=== PATIENT | male | born 1950 | race Hispanic/Latino ===

== ENCOUNTER 2017-03-10 08:34 | Inpatient (IN) | payer MEDICARE, OTHER ==
[2017-03-10 08:34] VITALS: BMI 37.3
[2017-03-10] MEDS ORDERED: Sodium Chloride 0.9% 1,000 ML IV STA ×3 (09:07→10:17)
--- NOTE | 2017-03-10 09:15 | ED PDOC ---
Lower Extremity Pain/Injury Time Seen by Provider: 03/10/17 08:57 Chief Complaint (Nursing): Lower Extremity Problem/Injury History Per: Patient Onset/Duration Of Symptoms: Unknown Current Symptoms Are (Timing): Still Present Severity: Moderate Additional Complaint(s): Pain and drauinage left leg, chronic, [id number] h/o osteomyelitis same leg post surgery. C/o fever and chills. Past Medical History Vital Signs: Last Vital Signs Temp 100.2 F H 03/10/17 09:01 Pulse 142 H 03/10/17 08:48 Resp 20 03/10/17 08:48 BP 95/68 L 03/10/17 08:48 Pulse Ox 90 L 03/10/17 08:48 - Surgical History Other surgeries: Surgery left leg - Family History Family History: States: Unknown Family Hx - Home Medications Home Medications: Ambulatory Orders Medication Instructions Recorded oxyCODONE [oxyCODONE Immediate 30 mg PO TID 03/10/17 Release Tab] - Allergies Allergies/Adverse Reactions: Allergies Allergy/AdvReac Type Severity Reaction Status Date / Time No Known Allergies Allergy Verified 12/05/16 15:01 Review of Systems ROS Statement: Except As Marked, All Systems Reviewed And Found Negative Constitutional: Positive for: Fever, Chills Cardiovascular: Negative for: Chest Pain, Palpitations Musculoskeletal: Positive for: Leg Pain Physical Exam - Reviewed Nursing Documentation Reviewed: Yes Vital Signs Reviewed: Yes - Physical Exam Appears: Positive for: Non-toxic, No Acute Distress Head Exam: Positive for: ATRAUMATIC, NORMAL INSPECTION, NORMOCEPHALIC Skin: Positive for: Normal Color, Warm, DRY Eye Exam: Positive for: EOMI, Normal appearance, PERRL ENT: Positive for: Normal ENT Inspection Neck: Positive for: Normal, Painless ROM Cardiovascular/Chest: Positive for: Tachycardia, Irregularly Irregular Respiratory: Positive for: Decreased Breath Sounds. Negative for: Wheezing, Respiratory Distress Gastrointestinal/Abdominal: Positive for: Normal Exam, Bowel Sounds, Soft Back: Positive for: Normal Inspection Extremity: Positive for: Other (Serosanguinous drainage left distal thigh from surgical wound. +ve tenderness distal thight. No calf tenderness.) Neurologic/Psych: Positive for: Alert, Oriented - Laboratory Results Result Diagrams: 03/10/17 09:15 03/10/17 09:15 - ECG O2 Sat by Pulse Oximetry: 90 - Critical Care Total Time (In Min): 45 Documented Critical Care: Time excludes all time spent performint seperately billable procedures Medical Decision Making Medical Decision Making: Pt has hi cath, will access and use for central line resuscitation Bolus NS 30ml/kg BP 110/70 after initial bolus Vanco 1 gm and Zosyn 3.375 for presumptive osteomyelitis as source of sepsis EKG tachycardic rhythm suspect sinus tach but read as afib with RVR. No PMH afib Disposition - Clinical Impression Clinical Impression: Severe sepsis, Osteomyelitis, Acute renal failure - Patient ED Disposition Is Patient to be Admitted: Yes - Disposition Disposition Time: 10:48 Condition: FAIR - Pt Status Changed To: Hospital Disposition Of: Inpatient - Admit Certification Admit to Inpatient:: After my assessment, the patient will require hospitalization for at least two midnights. This is because of the severity of symptoms shown, intensity of services needed, and/or the medical risk in this patient being treated as an outpatient. - POA Present On Arrival: None
[2017-03-10] MEDS ORDERED: Vancomycin 1 g Inj ONE (09:29)
[2017-03-10 09:32] LABS: HEMOGLOBIN 15.9 g/dL (12.0-18.0); MEAN CELL VOLUME 88.4 fl (80.0-94.0); MEAN CORPUSCULAR HEMOGLOBIN 29.7 pg (27.0-31.0); MEAN CORPUSCULAR HGB CONC 33.6 g/dL (33.0-37.0); MEAN PLATELET VOLUME 8.5 fl (7.2-11.7); PLATELET COUNT 179 K/uL (130-400); RBC 5.36 Mil/uL (4.40-5.90); RED CELL DISTRIBUTION WIDTH 14.7 % (11.5-14.5); WHITE BLOOD COUNT 11.3 K/uL (4.8-10.8)
[2017-03-10 09:42] LABS: ALB/GLOB RATIO 0.8 (1.0-2.1); ALBUMIN 2.8 g/dL (3.5-5.0); CALCIUM 8.4 mg/dL (8.4-10.2)
[2017-03-10 09:50] LABS: VENOUS BLOOD GAS BASE EXCESS -9.4 mmol/L (0.0-2.0); VENOUS BLOOD GAS PCO2 46 mmHg (40-60); VENOUS BLOOD GAS PO2 22 mm/Hg (30-55); VENOUS BLOOD PH 7.21 (7.32-7.43)
[2017-03-10] MEDS ORDERED: Morphine 4 MG/ML VIAL ONE (10:31)
[2017-03-10] MEDS ORDERED: Potassium Chloride 20 mEq ER Tab PO ONE (10:31)
[2017-03-10] MEDS: Potassium Chloride 20 mEq ER Tab PO ONE ×2 (10:33→11:40)
[2017-03-10 10:39] LABS: INR 1.3 (0.9-1.2); PARTIAL THROMBOPLASTIN TIME 42.8 Seconds (25.6-37.1); PROTHROMBIN TIME 14.6 Seconds (9.8-13.1)
[2017-03-10 10:46] LABS: MAGNESIUM 1.9 MG/DL (1.6-2.3)
[2017-03-10 10:55] VITALS: O2SAT 94
--- NOTE | 2017-03-10 11:01 | RAD ---
PROCEDURE: CHEST RADIOGRAPH, 1 VIEW HISTORY: sepsis COMPARISON: Chest radiograph dated 03/09/2013 FINDINGS: LUNGS: Clear. PLEURA: No pneumothorax or pleural fluid seen. CARDIOVASCULAR: Cardiomediastinal silhouette stably prominent. OSSEOUS STRUCTURES: Unchanged. VISUALIZED UPPER ABDOMEN: Normal. OTHER FINDINGS: Right internal jugular access chest port. IMPRESSION: No active disease.
--- NOTE | 2017-03-10 11:04 | RAD ---
PROCEDURE: Left Femur Radiographs. HISTORY: r/o osteomyelitis COMPARISON: None. TECHNIQUE: AP and Lateral Radiographs of the left femur. FINDINGS: Left orthopedic hardware demonstrated. Diffuse heterogeneity and hypertrophy/ proliferative changes the femur and tibia are grossly unchanged. There is no subcutaneous gas or evidence of periprosthetic fracture or loosening. No periosteal reaction is evident. IMPRESSION: No significant interval change. No radiographic evidence of acute process.
--- NOTE | 2017-03-10 11:09 | CP.PCM.HP ---
History of Present Illness - History of Present Illness History of Present Illness: CC: I felt bad HPI: 66 year old male with chronic leg pain seeing Dr. Maylin Armendariz, s/p "leg surgery" unspecified, likely knee replacement, presents with a several day history of fatigue, malaise, "feeling like he had the flu." Patient is uncooperative with history and examination, stating he wished to speak tomorrow because he was feeling tired. In ER, pt was reported to be hypotensive systolic BP in 70s and tachycardic in 140s with temp 100.2, WBC 11K with bands 30, LA 8.9.. Patient responded well to fluid bolus through port (for which he had placed presumably for IV abx for infection in the same area [discussed with Dr. Mata who pt was only referred to for a wound culture L knee to be taken]) and was hemodynamically stabilized. Patient to be admitted to ICU for further management and care for sepsis 2/2 osteomyelitis vs. infected port. Discussed with ID Dr. Lee, to consult Dr. Deon Cote for possible debridement as well as General Surgery Dr. Chadd Galloway for removal of portacath. Upon discussion with (former?) spouse, patient had been feeling ill for about a week and had very poor PO intake and was generally in bed. Patient sees Dr. Maylin Armendariz who is pain management, however based on conversation, seems she has also been his primary care physician. Attempted to call Dr. Armendariz, however no [employer] physician was able to be reached. ROS: refused to answer PMH: chronic pain PSH: denies FH: denies SH: denies tobacco, ETOH, IVDU NKDA Vitals Reviewed refused physical exam GEN: obese, uncooperative, disheveled Extremities: bilateral edema, and per chart draining fluid from distal L thigh LABS Most Recent Lab Values WBC 11.3 K/uL (4.8-10.8) H 03/10/17 09:15 RBC 5.36 Mil/uL (4.40-5.90) 03/10/17 09:15 Hgb 15.9 g/dL (12.0-18.0) 03/10/17 09:15 Hct 47.3 % (35.0-51.0) 03/10/17 09:15 MCV 88.4 fl (80.0-94.0) 03/10/17 09:15 MCH 29.7 pg (27.0-31.0) 03/10/17 09:15 MCHC 33.6 g/dL (33.0-37.0) 03/10/17 09:15 RDW 14.7 % (11.5-14.5) H 03/10/17 09:15 Plt Count 179 K/uL (130-400) 03/10/17 09:15 MPV 8.5 fl (7.2-11.7) 03/10/17 09:15 Neutrophils % (Manual) 63 % (42-75) 03/10/17 09:15 Band Neutrophils % 30 % (0-2) H* 03/10/17 09:15 Lymphocytes % (Manual) 3 % (20-50) L 03/10/17 09:15 Monocytes % (Manual) 1 % (0-10) 03/10/17 09:15 Metamyelocytes % 2 % (0-0) H 03/10/17 09:15 Myelocytes % 1 % (0-0) H 03/10/17 09:15 Toxic Granulation 03/10/17 09:15 Platelet Estimate Normal (NORMAL) 03/10/17 09:15 Large Platelets Present 03/10/17 09:15 Poikilocytosis (manual Moderate 03/10/17 09:15 Basophilic Stippling Critical Care Physician 03/10/17 09:15 Anisocytosis (manual) Slight 03/10/17 09:15 Ovalocytes Slight 03/10/17 09:15 [place] Cells Moderate 03/10/17 09:15 PT 14.6 Seconds (9.8-13.1) H 03/10/17 10:21 INR 1.3 (0.9-1.2) H 03/10/17 10:21 APTT 42.8 Seconds (25.6-37.1) H 03/10/17 10:21 pO2 22 mm/Hg (30-55) L 03/10/17 09:43 VBG pH 7.21 (7.32-7.43) L 03/10/17 09:43 VBG pCO2 46 mmHg (40-60) 03/10/17 09:43 VBG HCO3 15.6 mmol/L 03/10/17 09:43 VBG Total CO2 19.8 mmol/L (22-28) L 03/10/17 09:43 VBG O2 Sat (Calc) 40.2 % (40-65) 03/10/17 09:43 VBG Base Excess -9.4 mmol/L (0.0-2.0) L 03/10/17 09:43 VBG Potassium 4.3 mmol/L (3.6-5.2) 03/10/17 09:43 Sodium 131.0 mmol/L (132-148) L 03/10/17 09:43 Chloride 92.0 mmol/L (98-107) L 03/10/17 09:43 Glucose 104 mg/dL (75-110) 03/10/17 09:43 Lactate 8.9 mmol/L (0.7-2.1) H* 03/10/17 09:43 FiO2 21.0 % 03/10/17 09:43 Blood Gas Comments Lactate 8.9 03/10/17 09:43 Crit Value Called To grey Yanez 03/10/17 09:43 Crit Value Called By Cedric 03/10/17 09:43 Crit Value Read Back Y 03/10/17 09:43 Blood Gas Notified Time 949 03/10/17 09:43 Sodium 135 mmol/l (132-148) 03/10/17 09:15 Potassium 3.4 MMOL/L (3.6-5.0) L 03/10/17 09:15 Chloride 94 mmol/L (98-107) L 03/10/17 09:15 Carbon Dioxide 18 mmol/L (22-30) L 03/10/17 09:15 Anion Gap 26 (10-20) H 03/10/17 09:15 BUN 61 mg/dl (9-20) H 03/10/17 09:15 Creatinine 4.2 mg/dl (0.8-1.5) H 03/10/17 09:15 Est GFR ( Amer) 17 03/10/17 09:15 Est GFR (Non-Af Amer) 14 03/10/17 09:15 POC Glucose (mg/dL) 72 mg/dL (65-110) 03/10/17 14:56 Random Glucose 103 mg/dL (75-110) 03/10/17 09:15 Lactic Acid 7.6 MMOL/L (0.7-2.1) H* 03/10/17 11:55 Calcium 8.4 mg/dL (8.4-10.2) 03/10/17 09:15 Phosphorus 4.7 mg/dl (2.5-4.5) H 03/10/17 10:21 Magnesium 1.9 MG/DL (1.6-2.3) 03/10/17 10:21 Total Bilirubin 2.2 mg/dl (0.2-1.3) H 03/10/17 09:15 AST 81 U/L (17-59) H 03/10/17 09:15 ALT 62 U/L (21-72) 03/10/17 09:15 Alkaline Phosphatase 104 U/L (38-126) 03/10/17 09:15 Total Protein 6.3 G/DL (6.3-8.2) 03/10/17 09:15 Albumin 2.8 g/dL (3.5-5.0) L 03/10/17 09:15 Globulin 3.5 gm/dL (2.2-3.9) 03/10/17 09:15 Albumin/Globulin Ratio 0.8 (1.0-2.1) L 03/10/17 09:15 Venous Blood Potassium 4.3 mmol/L (3.6-5.2) 03/10/17 09:43 Allergies No Known Allergies Allergy (Verified 12/05/16 15:01) Height & Weight Height 5 ft 10 in Weight 265 lb Start Date/Time Active Medications 03/10/17 11:45 Piperacillin/Tazobact [Zosyn] 2.25 gm Sodium Chloride 0.9% 50 ml IVPB Q8 Clinical Indication: Empiric Therapy Piperacillin-Tazobactam Indication: Skin & Soft Tissue Infx 03/10/17 12:43 oxyCODONE [oxyCODONE Immediate Release Tab] 10 mg PO Q6 PRN 03/10/17 14:45 Dextrose 5% In Water [Dextrose 5% In Water 1000 ml] 1,000 ml Sodium Bicarbonate 8.4% [Sodium Bicarbonate (8.4%) 50 Meq Syringe] 150 meq IV 75 mls/ hr 03/10/17 15:00 Dextrose 5% In Water 250 ml Norepinephrine [Levophed] 4 mg IV 2.5 mcg/min 03/10/17 15:45 Sodium Chloride 0.9% 96 ml Dexmedetomidine Hydrochloride [Precedex] 400 mcg IV 0.2 mcg/kg/hr 03/10/17 17:00 Docusate [Colace] 100 mg PO BID 03/10/17 21:00 Pantoprazole [Protonix Inj] 40 mg IVP Q12 03/12/17 09:00 Vancomycin [Vancomycin Inj] 1 gm Sodium Chloride 0.9% 250 ml IVPB DAILY Clinical Indication: Empiric Therapy Vancomycin Indication: Skin and Structure Inf ASSESSMENT AND PLAN 66 year old male with chronic leg pain seeing Dr. Maylin Armendariz, s/p "leg surgery " unspecified, likely knee replacement, presents with a several day history of fatigue, malaise, "feeling like he had the flu." Patient is uncooperative with history and examination, stating he wished to speak tomorrow because he was feeling tired. In ER, pt was reported to be hypotensive systolic BP in 70s and tachycardic in 140s with temp 100.2, WBC 11K with bands 30, LA 8.9. Patient responded well to fluid bolus through port (for which he had placed presumably for IV abx for infection in the same area [discussed with Dr. Mata who pt was only referred to for a wound culture L knee to be taken]) and was hemodynamically stabilized. Patient to be admitted to ICU for further management and care for sepsis 2/2 osteomyelitis vs. infected port. Discussed with ID Dr. Lee, to consult Dr. Deon Cote for possible debridement as well as General Surgery Dr. Chadd Galloway for removal of portacath. Pt was stabilized in ER and transferred, admit to ICU. Upon discussion with (former?) spouse, patient had been feeling ill for about a week and had very poor PO intake and was generally in bed. Patient sees Dr. Maylin Armendariz who is pain management, however based on conversation, seems she has also been his primary care physician. Attempted to call Dr. Armendariz, however no [employer] physician was able to be reached. In ICU, patient became acutely unresponsive, hypotensive, tachycardic, hypoxic, tachypneic and then apneic, was intubated, levophed initiated, ordered STAT CT head and chest. Family notified. CAYLA mathew called for PEA, ACLS protocol initiated, ROSC, central line R femoral, Kizzy L arm. Discussed with Son, Laci who is next of kin, patient is not . Family wishes to have patient as FULL CODE and "to do everything to keep him alive." Labs pending, patient in severe acidosis, BE repeat -25 and LA 9.1, evaluate for acute CVA vs acute FL vs acute PE. On exam, patient lower extremities mottled, pupils fixed. Closely monitor in ICU, will discuss with family again once further diagnostic testing results Severe Sepsis Severe Metabolic Acidosis, Lactic Acidosis 2/2 Osteomyelitis vs. infected portacath? pt presented with hypotension, tachycardia, bands 30, temp 100.2 Vanc and Zosyn renally dosed (Vanc QOD) intiated 03/10/17 general surgery consulted for removal portacath orthopedic surgery consulted for possible debridement/eval for osteo infectious disease, discussed, consult appreciated and followed cultures pending BE -9.4, repeat -25 LA trending up pt initiated on bicarb drip , levophed monitor Rhabdomyolysis CK 1539, on fluids Coffee-ground Emesis one episode in ER H/H stable on Protonix IVP Q12 THELMA No hx of renal failure in past per family/ BUN 61 SCr 4.2 Chronic Pain patient home dose Oxy 30 mg TID. Present on Admission - Present on Admission Any Indicators Present on Admission: No Past Patient History - Past Social History Smoking Status: Never Smoked - MUSCULOSKELETAL/RHEUMATOLOGICAL Hx Musculoskeletal Disorders: Yes Hx Osteomyelitis: Yes - PSYCHIATRIC Hx Substance Use: No - SURGICAL HISTORY Hx Surgeries: Yes Other/Comment: surgery to left leg Meds Allergies/Adverse Reactions: Allergies Allergy/AdvReac Type Severity Reaction Status Date / Time No Known Allergies Allergy Verified 12/05/16 15:01 Results - Vital Signs Recent Vital Signs: Last Vital Signs Temp 100.2 F H 03/10/17 09:01 Pulse 135 H 03/10/17 10:54 Resp 20 03/10/17 10:54 BP 115/77 03/10/17 10:54 Pulse Ox 94 L 03/10/17 10:54 - Labs Result Diagrams: 03/10/17 09:15 03/10/17 09:15 Labs: Laboratory Results - last 24 hr 03/10/17 03/10/17 03/10/17 09:15 09:15 09:43 WBC 11.3 H RBC 5.36 Hgb 15.9 Hct 47.3 MCV 88.4 MCH 29.7 MCHC 33.6 RDW 14.7 H Plt Count 179 MPV 8.5 PT INR APTT pO2 22 L VBG pH 7.21 L VBG pCO2 46 VBG HCO3 15.6 VBG Total CO2 19.8 L VBG O2 Sat (Calc) 40.2 VBG Base Excess -9.4 L VBG Potassium 4.3 Glucose 104 Lactate 8.9 H* FiO2 21.0 Blood Gas Comments Lactate 8.9 Crit Value Called To grey Yanez Crit Value Called By 203 Crit Value Read Back Y Blood Gas Notified Time 949 Sodium 135 131.0 L Potassium 3.4 L Chloride 94 L 92.0 L Carbon Dioxide 18 L Anion Gap 26 H BUN 61 H Creatinine 4.2 H Est GFR ( Amer) 17 Est GFR (Non-Af Amer) 14 Random Glucose 103 Calcium 8.4 Phosphorus Magnesium Total Bilirubin 2.2 H AST 81 H ALT 62 Alkaline Phosphatase 104 Total Protein 6.3 Albumin 2.8 L Globulin 3.5 Albumin/Globulin Ratio 0.8 L Venous Blood Potassium 4.3 18 03/10/17 10:21 10:21 WBC RBC Hgb Hct MCV MCH MCHC RDW Plt Count MPV PT 14.6 H INR 1.3 H APTT 42.8 H pO2 VBG pH VBG pCO2 VBG HCO3 VBG Total CO2 VBG O2 Sat (Calc) VBG Base Excess VBG Potassium Glucose Lactate FiO2 Blood Gas Comments Crit Value Called To Crit Value Called By Crit Value Read Back Blood Gas Notified Time Sodium Potassium Chloride Carbon Dioxide Anion Gap BUN Creatinine Est GFR ( Amer) Est GFR (Non-Af Amer) Random Glucose Calcium Phosphorus 4.7 H Magnesium 1.9 Total Bilirubin AST ALT Alkaline Phosphatase Total Protein Albumin Globulin Albumin/Globulin Ratio Venous Blood Potassium
[2017-03-10 11:22] LABS: ANISOCYTOSIS SLIGHT; BANDS 30 % (0-2); LYMPHOCYTE 3 % (20-50); METAMYELOCYTE 2 % (0-0); MONOCYTE 1 % (0-10); MYELOCYTE 1 % (0-0); NEUTROPHIL 63 % (42-75); PLATELET ESTIMATE NORMAL (NORMAL); TOTAL CELLS COUNTED 100
[2017-03-10 11:23] LABS: BURR CELLS MODERATE; POIKILOCYTOSIS MODERATE
[2017-03-10 11:25] LABS: LARGE PLATELETS PRESENT; OVALOCYTES SLIGHT
--- NOTE | 2017-03-10 11:31 | CP.PCM.CON ---
History of Present Illness - History of Present Illness History of Present Illness: 66 y/o male with pmx of multiple left knee surgery presents to [facility] with c/o left knee pain. Patient notes he goes to a "pain" doctor on [address], but does not remember name of doctor. Patient's son also at bedside could not provide any history. 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 Patient was also had right port (sub Q) placement for IV antibiotics but patient does not remember the name of the antibiotics. Patient did not follow up with previous infectious disease physician and did not follow up with an orthopedic physician. Patient has been going to a a pain clinic 3x/week. Patient or son could not provide any history of any recent medical problems. Patient denies having kidney failure. Patient has left knee sinus tract which is draining purulent fluid. Patient's main complaint was pain in left knee and dx with left knee sinus track with likely prosthetic joint infection not on any supressive abx. Limited history from patient. deneis any chest pain, denies any abdominal pain, deneis any SOB, (+)left knee pain Review of Systems - Review of Systems Systems not reviewed;Unavailable: Unstable Vital Signs - Constitutional Constitutional: Fatigue, Malaise - Cardiovascular Cardiovascular: Edema, Leg Edema. absent: Chest Pain, Syncope - Respiratory Respiratory: absent: Cough, Dyspnea, Wheezing - Gastrointestinal Gastrointestinal: absent: Abdominal Pain, Diarrhea, Fecal Incontinence, Loose Stools, Vomiting - Genitourinary Genitourinary: Other (decrease urine output) - Integumentary Integumentary: Other (left knee sinus tract) Past Patient History - Tetanus Immunizations Tetanus Immunization: Unknown - Past Medical History & Family History Past Medical History?: Yes - Past Social History Smoking Status: Smoker Currrent Status Unknown - MUSCULOSKELETAL/RHEUMATOLOGICAL Hx Musculoskeletal Disorders: Yes Hx Osteomyelitis: Yes - PSYCHIATRIC Hx Substance Use: No - SURGICAL HISTORY Hx Surgeries: Yes Other/Comment: surgery to left leg Meds Allergies/Adverse Reactions: Allergies Allergy/AdvReac Type Severity Reaction Status Date / Time No Known Allergies Allergy Verified 12/05/16 15:01 - Medications Medications: Current Medications Sodium Chloride (Sodium Chloride 0.9%) 1,000 mls @ 200 mls/hr IV .Q5H STA Stop: 03/10/17 14:06 Last Admin: 03/10/17 09:21 Dose: 200 mls/hr Piperacillin Sod/Tazobactam (Sod 3.375 gm/ Sodium Chloride) 100 mls @ 100 mls/ hr IVPB Q12 TRISTON PRN Reason: Protocol Physical Exam - Constitutional Appears: Unkempt, Chronically Ill - Respiratory Exam Respiratory Exam: NORMAL BREATHING PATTERN - Cardiovascular Exam Cardiovascular Exam: REGULAR RHYTHM, +S1, +S2, Systolic Murmur - GI/Abdominal Exam GI & Abdominal Exam: Normal Bowel Sounds, Soft - Expanded Lower Extremities Exam Left Lower Leg Exam: ecchymosis, swelling - Skin Skin Exam: Normal Color - Additional Findings Additional findings: 2 sinus tract :left knee sinus track with open purulent secretions drainage, 2nd sinus tract closed not drainage Results - Vital Signs Recent Vital Signs: Last Vital Signs Temp 100.2 F H 03/10/17 09:01 Pulse 135 H 03/10/17 10:54 Resp 20 03/10/17 10:54 BP 115/77 03/10/17 10:54 Pulse Ox 94 L 03/10/17 10:54 - Labs Result Diagrams: 03/10/17 09:15 03/10/17 09:15 Labs: Laboratory Results - last 24 hr 03/10/17 03/10/17 03/10/17 09:15 09:15 09:43 WBC 11.3 H RBC 5.36 Hgb 15.9 Hct 47.3 MCV 88.4 MCH 29.7 MCHC 33.6 RDW 14.7 H Plt Count 179 MPV 8.5 Neutrophils % (Manual) 63 Band Neutrophils % 30 H* Lymphocytes % (Manual) 3 L Monocytes % (Manual) 1 Metamyelocytes % 2 H Myelocytes % 1 H Platelet Estimate Normal Large Platelets Present Poikilocytosis (manual Moderate Basophilic Stippling Slight Anisocytosis (manual) Slight Ovalocytes Slight [place] Cells Moderate PT INR APTT pO2 22 L VBG pH 7.21 L VBG pCO2 46 VBG HCO3 15.6 VBG Total CO2 19.8 L VBG O2 Sat (Calc) 40.2 VBG Base Excess -9.4 L VBG Potassium 4.3 Glucose 104 Lactate 8.9 H* FiO2 21.0 Blood Gas Comments Lactate 8.9 Crit Value Called To grey Yanez Crit Value Called By 203 Crit Value Read Back Y Blood Gas Notified Time 949 Sodium 135 131.0 L Potassium 3.4 L Chloride 94 L 92.0 L Carbon Dioxide 18 L Anion Gap 26 H BUN 61 H Creatinine 4.2 H Est GFR ( Amer) 17 Est GFR (Non-Af Amer) 14 Random Glucose 103 Calcium 8.4 Phosphorus Magnesium Total Bilirubin 2.2 H AST 81 H ALT 62 Alkaline Phosphatase 104 Total Protein 6.3 Albumin 2.8 L Globulin 3.5 Albumin/Globulin Ratio 0.8 L Venous Blood Potassium 4.3 03/10/17 03/10/17 10:21 10:21 WBC RBC Hgb Hct MCV MCH MCHC RDW Plt Count MPV Neutrophils % (Manual) Band Neutrophils % Lymphocytes % (Manual) Monocytes % (Manual) Metamyelocytes % Myelocytes % Platelet Estimate Large Platelets Poikilocytosis (manual Basophilic Stippling Anisocytosis (manual) Ovalocytes [place] Cells PT 14.6 H INR 1.3 H APTT 42.8 H pO2 VBG pH VBG pCO2 VBG HCO3 VBG Total CO2 VBG O2 Sat (Calc) VBG Base Excess VBG Potassium Glucose Lactate FiO2 Blood Gas Comments Crit Value Called To Crit Value Called By Crit Value Read Back Blood Gas Notified Time Sodium Potassium Chloride Carbon Dioxide Anion Gap BUN Creatinine Est GFR ( Amer) Est GFR (Non-Af Amer) Random Glucose Calcium Phosphorus 4.7 H Magnesium 1.9 Total Bilirubin AST ALT Alkaline Phosphatase Total Protein Albumin Globulin Albumin/Globulin Ratio Venous Blood Potassium Assessment & Plan - Assessment and Plan (Free Text) Plan: Left Knee prosthetic joint infection: last culture MSSA/corynebacterium, start broad spectrum abx, ID follow up, continue 30 ml/kg of IVF, serial lactic, source control (orthopedic consult), ID consult -THELMA/CKD: Patient knew about decreased urine output, avoid nephrotoxic drugs, chek UA/urine lytes and urine eosinophils, renal consult -Suspect chronic diastolic heart failure: obtain echo, EKG, cardiology eval for possible surgial intervention -NPO -BGM q6hrs, ISS lispro -dvt ppx heparin SQ -PUD ppx protonix Overall, patient provides a history of failure to follow up with ortho and infectious disease which has resulted in progression of left knee infection resulting in sinus tract formation. Prognosis guarded with mortality high (more than 60 percent) Patient will benefit from ICU level care. cc time 45 minutes Risks, benefits and alternatives to above management discussed with patient as his son. All questions answered. Addendum: Patient's son brought in medications from home, which included clindamycin 1500 mg q6hrs, cephelexin QID, HCTZ, gabapentin and pentoxyphylene Physician prescribing medicaitons include Willa Gutierrez and Josue Lynn PMD: Pati Sesay Patient's son provided multiple phone numbers: [phone] J[place]aran[place]rlton (daughter in law) [phone] Laci (son) [phone] ([place]) Son stated that patient has most of his follow up at [facility] (admitted at least 6-10 times in last few years). - Date & Time Date: 03/10/17 Time: 15:02
[2017-03-10] MEDS ORDERED: oxyCODONE 10 mg Immediate Release Tab PO PRN (12:43)
[2017-03-10] MEDS: Piperacillin/Tazobact 2.25 GM in Sodium Chloride 0.9% 50 ML IVPB SCH ×2 (13:40→16:06)
[2017-03-10] MEDS ORDERED: Influenza Vaccine 18yr & older 0.5 ML/45 MCG SYR IM ONE (14:00)
[2017-03-10] MEDS ORDERED: Dextrose 50% SYRINGE Inj (50 ml) IVP STA (14:10)
[2017-03-10] MEDS ORDERED: Dextrose 50% SYRINGE Inj (50 ml) ONE (14:11)
[2017-03-10] MEDS ORDERED: Sodium Bicarbonate 8.4% 150 MEQ in Dextrose 5% In Water 1,000 ML IV SCH (14:45)
[2017-03-10] MEDS ORDERED: Dextrose 50% SYRINGE Inj (50 ml) IVP ONE (14:56)
[2017-03-10] MEDS ORDERED: Pneumococcal 23-Valent Vaccine IM ONE (15:00)
[2017-03-10] MEDS ORDERED: Dexmedetomidine Hydrochloride 400 MCG in Sodium Chloride 0.9% 96 ML IV SCH (15:45)
[2017-03-10] MEDS ORDERED: Propofol 10 mg/ml 1,000 MG/100 ML VIAL ONE (16:24)
[2017-03-10 16:37] LABS: ABG ALLEN TEST YES; ARTERIAL BLOOD GAS HCO3 4.8 mmol/L (21-28); ARTERIAL BLOOD GAS HEMOGLOBIN 15.9 g/dL (11.7-17.4); ARTERIAL BLOOD GAS O2 CAPACITY 21.9 mL/dL (16-24); ARTERIAL BLOOD GAS O2 SAT 100.5 % (95-98); ARTERIAL BLOOD GAS PCO2 40 mm/Hg (35-45); ARTERIAL BLOOD GAS PH 6.88 (7.35-7.45); ARTERIAL BLOOD GAS PO2 159 mm/Hg (80-100); ARTERIAL BLOOD GAS TCO2 8.7 mmol/L (22-28)
[2017-03-10 16:41] VITALS: TEMP 98.5
--- NOTE | 2017-03-10 16:44 | CP.PCM.PN ---
Subjective - Date & Time of Evaluation Date of Evaluation: 03/10/17 Time of Evaluation: 04:20 - Subjective Subjective: Nurse noted patient not responsive. Patient seen at bedside. Not spontaneous breathing. Objective - Vital Signs/Intake and Output Vital Signs (last 24 hours): Temp Pulse Resp BP Pulse Ox 98.5 F 119 H 27 H 79/42 L 94 L 03/10/17 16:00 03/10/17 16:00 03/10/17 16:00 03/10/17 16:00 03/10/17 14:00 Intake and Output: 03/10/17 03/10/17 06:59 18:59 Intake Total 3129 Balance 3129 - Medications Medications: Current Medications Docusate Sodium (Colace) 100 mg PO BID [facility] Last Admin: 03/10/17 16:04 Dose: Not Given Piperacillin Sod/Tazobactam (Sod 2.25 gm/ Sodium Chloride) 50 mls @ 50 mls/hr IVPB Q8 [facility] PRN Reason: Protocol Last Admin: 03/10/17 16:06 Dose: 50 mls/hr Sodium Bicarbonate 150 meq/ (Dextrose) 1,150 mls @ 75 mls/hr IV .[id number] [facility] Stop: 03/11/17 14:31 Norepinephrine Bitartrate 4 mg (/ Dextrose) 254 mls @ 9.52 mls/hr IV .Q24H TRISTON ; 2.5 MCG/MIN PRN Reason: Protocol Last Titration: 03/10/17 15:57 Dose: 5 mcg/min, 19.05 mls/hr Vancomycin HCl 1 gm/ Sodium (Chloride) 250 mls @ 166.667 mls/hr IVPB DAILY [facility] PRN Reason: Protocol Dexmedetomidine HCl 400 mcg/ (Sodium Chloride) 100 mls @ 6.01 mls/hr IV .[id number] [facility]; 0.2 MCG/KG/HR PRN Reason: Protocol Oxycodone HCl (Oxycodone Immediate Release Tab) 10 mg PO Q6 PRN PRN Reason: Pain, severe (8-10) Last Admin: 03/10/17 12:49 Dose: 10 mg Pantoprazole Sodium (Protonix Inj) 40 mg IVP Q12 TRISTON Sodium Bicarbonate (Sodium Bicarbonate 7.5% (0.9 Meq/Ml) 50 Ml) 135 meq IV ONCE ONE Stop: 03/10/17 16:46 - Labs Labs: 03/10/17 09:15 03/10/17 09:15 PT 14.6 Seconds (9.8-13.1) H 03/10/17 10:21 INR 1.3 (0.9-1.2) H 03/10/17 10:21 APTT 42.8 Seconds (25.6-37.1) H 03/10/17 10:21 - Eye Exam Pupil Exam: Fixed Additional comments: pupils not reactive - Respiratory Exam Additional comments: no spontaneous breathing - Skin Skin Exam: Mottled Assessment and Plan - Assessment and Plan (Free Text) Plan: Acute respiratory arrest: patient immediately intubated, (+)EtCO2, (+)b/l air entry, pulses present -ABg performed post intubation: revealed significant Acidosis with bicarb of 4 and pH 6.88 and pCO2 of 40 -metabolic acidosis with inadequate ventilatory response -metabolic and respiratory acidosis -contineu IV bicarb ggt and bicarb push -base excess high -CT head r/o stroke Procedures Attestation:: I certify that I have explained the specified Operation(s) or Procedure(s), risks, benefits and reasonable alternatives to the Patient and/or other person responsible. The opportunity was given to ask questions and all questions answered - Intubation Sedative: None Laryngoscope: Lambert ET Tube Size: 7.5 ET Tube Uncuffed: Yes ET Tube Secured at Depth: 22 ET Tube Secured Locarion: Teeth ET Tube Placement Confirmation: Visualized Passing Through Cords, Breath Sounds Equal Bilaterally, No Breath Sounds Over Epigastrum, Confirmation w/Capnometry Patient Tolerated Procedure: Well Procedure Immediate Complications: None
[2017-03-10] MEDS ORDERED: Sodium Bicarbonate 7.5% (0.9 MEQ/ML) 50ML INJ IV ONE ×3 (16:45)
[2017-03-10] MEDS ORDERED: Propofol 10 mg/ml 1,000 MG/100 ML VIAL IV SCH (17:00)
--- NOTE | 2017-03-10 17:02 | RAD ---
PROCEDURE: CHEST RADIOGRAPH, 1 VIEW HISTORY: eval effusion COMPARISON: Chest radiograph performed approximately 6.5 hours prior. FINDINGS: LUNGS: Clear. PLEURA: No pneumothorax or pleural fluid seen. CARDIOVASCULAR: Cardiomediastinal silhouette stably prominent. OSSEOUS STRUCTURES: Unchanged. VISUALIZED UPPER ABDOMEN: Normal. OTHER FINDINGS: New endotracheal tube with tip between the clavicles and ileana. Right internal jugular access chest port, unchanged. . IMPRESSION: Interval placement of endotracheal tube in satisfactory position. No other significant interval change.
[2017-03-10 17:23] LABS: ABG ALLEN TEST YES; ARTERIAL BLOOD GAS HEMOGLOBIN 12.6 g/dL (11.7-17.4); ARTERIAL BLOOD GAS O2 CAPACITY 17.1 mL/dL (16-24); ARTERIAL BLOOD GAS O2 CONTENT 16.7 ML/dL (15-23); ARTERIAL BLOOD GAS O2 SAT 97.4 % (95-98); ARTERIAL BLOOD GAS PCO2 69 mm/Hg (35-45); ARTERIAL BLOOD GAS PH 7.42 (7.35-7.45); ARTERIAL BLOOD GAS PO2 75 mm/Hg (80-100); ARTERIAL BLOOD GAS TCO2 46.9 mmol/L (22-28)
--- NOTE | 2017-03-10 17:53 | CP.PCM.PN ---
Subjective - Date & Time of Evaluation Date of Evaluation: 03/10/17 Time of Evaluation: 17:05 - Subjective Subjective: NUrse called 2nd patient became bradycardic -suspect acidosis -immediate CPR started and bicarb pushed with epi. -3 amps of bicarb pushed -ROSC obtained -right femoral central line placed after code. Patient no multiple pressors. -Son and daughter at bedside aware of and present when code was called. -echo pending, trop, EKg pending post code Objective - Vital Signs/Intake and Output Vital Signs (last 24 hours): Temp Pulse Resp BP Pulse Ox 98.5 F 119 H 27 H 79/42 L 94 L 03/10/17 16:00 03/10/17 16:00 03/10/17 16:00 03/10/17 16:00 03/10/17 14:00 Intake and Output: 03/10/17 03/10/17 06:59 18:59 Intake Total 3129 Balance 3129 - Medications Medications: Current Medications Docusate Sodium (Colace) 100 mg PO BID [facility] Last Admin: 03/10/17 16:04 Dose: Not Given Piperacillin Sod/Tazobactam (Sod 2.25 gm/ Sodium Chloride) 50 mls @ 50 mls/hr IVPB Q8 [facility] PRN Reason: Protocol Last Admin: 03/10/17 16:06 Dose: 50 mls/hr Sodium Bicarbonate 150 meq/ (Dextrose) 1,150 mls @ 75 mls/hr IV .[id number] [facility] Stop: 03/11/17 14:31 Last Admin: 03/10/17 16:49 Dose: 75 mls/hr Norepinephrine Bitartrate 4 mg (/ Dextrose) 254 mls @ 9.52 mls/hr IV .Q24H [facility] ; 2.5 MCG/MIN PRN Reason: Protocol Last Titration: 03/10/17 15:57 Dose: 5 mcg/min, 19.05 mls/hr Vancomycin HCl 1 gm/ Sodium (Chloride) 250 mls @ 166.667 mls/hr IVPB DAILY [facility] PRN Reason: Protocol Propofol (Diprivan) 1,000 mg in 100 mls @ 3.606 mls/hr IV .Q24H [facility]; 5 MCG/KG/ MIN PRN Reason: Protocol Stop: 03/11/17 16:58 Pantoprazole Sodium (Protonix Inj) 40 mg IVP Q12 [facility]ST[facility] - Labs Labs: 03/10/17 09:15 03/10/17 09:15 PT 14.6 Seconds (9.8-13.1) H 03/10/17 10:21 INR 1.3 (0.9-1.2) H 03/10/17 10:21 APTT 42.8 Seconds (25.6-37.1) H 03/10/17 10:21 - Constitutional Appears: Other (not responsive, pupils not reactive) - Cardiovascular Exam Additional comments: no pulse palpated CPr started Assessment and Plan - Assessment and Plan (Free Text) Plan: -PEA arrest 2nd severe metabolic acidosis: CPR performed and ROSC obtained -post ROSC, I reese ABG which rvealed ABG 7.42, bicarb 38, pCO2 69, possible large PE/metabolic acidosis -ROSC obtained -echo not available suspect patient dilan have had cardiac arrest -echo pending, cardiology eval pending, ID and renal consult pending -Prognosis poor. Addendum: During documentation, patient coded again with bradycardia and asystole. -CPR restarted -multiple episodes of epi/bicarb calcium pushed -unable to obtain Sontaneous circulation Procedures Attestation:: I certify that I have explained the specified Operation(s) or Procedure(s), risks, benefits and reasonable alternatives to the Patient and/or other person responsible. The opportunity was given to ask questions and all questions answered - Arterial Line Left Femoral Aseptic technique was employed throughout the procedure: Full body sterile drape , Chloraprep Antiseptic: 2 minute prep for Femoral Time Out Performed: No Pt. placed on Pulse Ox Monitor: Yes Central Line Prep: Chlorhexidine-Alcohol Combination Local Anesthesia Used: Lidocaine 1% Amount of Anesthesia Used (mls): 5 Ultrasound Used for Placement: No Gauge (Size): 20 gauge Technique Used: Guide Wire Technique Secured by: Suture Post procedure dressing: Clear vapor permeable, Chlorhexidine disc (Biopatch) Patient Tolerated Procedure: well Immediate Complications: none - Central Line Placement Right Femoral Triple Lumen Catheter Aseptic technique was employed throughout the procedure: Full sterile barriers ( mask, hair cover, sterile gown, sterile gloves), Full body sterile drape, Chloraprep Antiseptic: 30 second prep for IJ or SC sites CVP Time Out Performed: No Pt. Placed on Pulse Ox Monitor: Yes Central Line Prep: Chlorhexidine-Alcohol Combination Local Anesthesia Used: Lidocaine 1% Amount of Anesthesia Used (mls): 5 Ultrasound Used for Placement: No Central Line Lumen Inserted: triple Central Line Length: 16 cm Post Procedure: Sutured in Place, Good Blood Return, All Ports Aspirated, Flushed, Capped, Sterile Dressing Applied Secured by: Suture Post procedure dressing: Clear vapor permeable, Chlorhexidine disc (Biopatch) Post Procedure X-Ray: No
[2017-03-10 18:01] LABS: EOS # 0.2 K/uL (0.0-0.7); HEMOGLOBIN 11.8 g/dL (12.0-18.0); MEAN PLATELET VOLUME 9.5 fl (7.2-11.7)
[2017-03-10 18:11] LABS: INR 1.9 (0.9-1.2); PROTHROMBIN TIME 20.9 Seconds (9.8-13.1)
[2017-03-10 18:12] LABS: BASO # 0.1 K/uL (0.0-0.2); BASO % 0.4 % (0.0-2.0); EOS % 0.6 % (0.0-4.0); LYMPH # 2.9 K/uL (1.0-4.3); LYMPH % 10.6 % (20.0-40.0); MEAN CELL VOLUME 92.9 fl (80.0-94.0); MEAN CORPUSCULAR HEMOGLOBIN 28.9 pg (27.0-31.0); MEAN CORPUSCULAR HGB CONC 31.1 g/dL (33.0-37.0); MONO # 0.3 K/uL (0.0-0.8); MONO % 1.1 % (0.0-10.0); NEUT # 23.7 K/uL (1.8-7.0); NEUT % 87.3 % (50.0-75.0); NRBC % 0.7 % (0.0-0.0); PARTIAL THROMBOPLASTIN TIME 94.3 Seconds (25.6-37.1); RBC 4.08 Mil/uL (4.40-5.90); RED CELL DISTRIBUTION WIDTH 15.5 % (11.5-14.5); WHITE BLOOD COUNT 27.1 K/uL (4.8-10.8)
[2017-03-10 18:39] LABS: ALB/GLOB RATIO 0.7 (1.0-2.1); ALBUMIN 1.6 g/dL (3.5-5.0); CALCIUM 9.7 mg/dL (8.4-10.2); MAGNESIUM 4.3 MG/DL (1.6-2.3)
[2017-03-10 18:44] LABS: TROPONIN I 0.287 ng/mL (0.00-0.120)
--- NOTE | 2017-03-10 19:16 | CP.PCM.CON ---
Past Patient History - Tetanus Immunizations Tetanus Immunization: Unknown - Past Medical History & Family History Past Medical History?: Yes - Past Social History Smoking Status: Never Smoked - HEMATOLOGICAL/ONCOLOGICAL Hx AIDS: No Hx Human Immunodeficiency Virus (HIV): No - MUSCULOSKELETAL/RHEUMATOLOGICAL Hx Musculoskeletal Disorders: Yes Hx Osteomyelitis: Yes - PSYCHIATRIC Hx Substance Use: No - SURGICAL HISTORY Hx Surgeries: Yes Other/Comment: surgery to left leg Meds Allergies/Adverse Reactions: Allergies Allergy/AdvReac Type Severity Reaction Status Date / Time No Known Allergies Allergy Verified 12/05/16 15:01 - Medications Medications: Current Medications Docusate Sodium (Colace) 100 mg PO BID [facility] Last Admin: 03/10/17 16:04 Dose: Not Given Piperacillin Sod/Tazobactam (Sod 2.25 gm/ Sodium Chloride) 50 mls @ 50 mls/hr IVPB Q8 [facility] PRN Reason: Protocol Last Admin: 03/10/17 16:06 Dose: 50 mls/hr Sodium Bicarbonate 150 meq/ (Dextrose) 1,150 mls @ 75 mls/hr IV .[id number] [facility] Stop: 03/11/17 14:31 Last Admin: 03/10/17 16:49 Dose: 75 mls/hr Norepinephrine Bitartrate 4 mg (/ Dextrose) 254 mls @ 9.52 mls/hr IV .Q24H [facility] ; 2.5 MCG/MIN PRN Reason: Protocol Last Titration: 03/10/17 15:57 Dose: 5 mcg/min, 19.05 mls/hr Vancomycin HCl 1 gm/ Sodium (Chloride) 250 mls @ 166.667 mls/hr IVPB DAILY [facility] PRN Reason: Protocol Propofol (Diprivan) 1,000 mg in 100 mls @ 3.606 mls/hr IV .Q24H [facility]; 5 MCG/KG/ MIN PRN Reason: Protocol Stop: 03/11/17 16:58 Vasopressin 100 units/ Sodium (Chloride) 105 mls @ 1.89 mls/hr IV .Q24H [facility]; 0.03 UNITS/MIN PRN Reason: Protocol Pantoprazole Sodium (Protonix Inj) 40 mg IVP Q12 [facility] Results - Vital Signs Recent Vital Signs: Last Vital Signs Temp 98.5 F 03/10/17 16:00 Pulse 119 H 03/10/17 16:00 Resp 27 H 03/10/17 16:00 BP 79/42 L 03/10/17 16:00 Pulse Ox 94 L 03/10/17 14:00 - Labs Result Diagrams: 03/10/17 17:49 03/10/17 17:49 Labs: Laboratory Results - last 24 hr 03/10/17 03/10/17 03/10/17 09:15 09:15 09:43 WBC 11.3 H RBC 5.36 Hgb 15.9 Hct 47.3 MCV 88.4 MCH 29.7 MCHC 33.6 RDW 14.7 H Plt Count 179 MPV 8.5 Neut % (Auto) Lymph % (Auto) Placer % (Auto) Eos % (Auto) Baso % (Auto) Neut # Lymph # Placer # Eos # Baso # Neutrophils % (Manual) 63 Band Neutrophils % 30 H* Lymphocytes % (Manual) 3 L Monocytes % (Manual) 1 Metamyelocytes % 2 H Myelocytes % 1 H Toxic Granulation Platelet Estimate Normal Large Platelets Present Poikilocytosis (manual Moderate Basophilic Stippling Media Relations Intern Anisocytosis (manual) Slight Ovalocytes Slight Quan Cells Moderate PT INR APTT pCO2 pO2 22 L HCO3 ABG pH ABG Total CO2 ABG O2 Saturation ABG O2 Content ABG Base Excess ABG Hemoglobin ABG Carboxyhemoglobin POC ABG HHb (Measured) ABG Methemoglobin ABG O2 Capacity Marcell Test VBG pH 7.21 L VBG pCO2 46 VBG HCO3 15.6 VBG Total CO2 19.8 L VBG O2 Sat (Calc) 40.2 VBG Base Excess -9.4 L VBG Potassium 4.3 A-a O2 Difference Hgb O2 Saturation Glucose 104 Lactate 8.9 H* Vent Mode FiO2 21.0 Blood Gas Comments Lactate 8.9 Crit Value Called To grey Yanez Crit Value Called By 203 Crit Value Read Back Y Blood Gas Notified Time 949 Sodium 135 131.0 L Potassium 3.4 L Chloride 94 L 92.0 L Carbon Dioxide 18 L Anion Gap 26 H BUN 61 H Creatinine 4.2 H Est GFR ( Amer) 17 Est GFR (Non-Af Amer) 14 POC Glucose (mg/dL) Random Glucose 103 Lactic Acid Calcium 8.4 Phosphorus Magnesium Total Bilirubin 2.2 H AST 81 H ALT 62 Alkaline Phosphatase 104 Total Creatine Kinase Troponin I Total Protein 6.3 Albumin 2.8 L Globulin 3.5 Albumin/Globulin Ratio 0.8 L Venous Blood Potassium 4.3 03/10/17 03/10/17 03/10/17 10:21 10:21 11:55 WBC RBC Hgb Hct MCV MCH MCHC RDW Plt Count MPV Neut % (Auto) Lymph % (Auto) Placer % (Auto) Eos % (Auto) Baso % (Auto) Neut # Lymph # Placer # Eos # Baso # Neutrophils % (Manual) Band Neutrophils % Lymphocytes % (Manual) Monocytes % (Manual) Metamyelocytes % Myelocytes % Toxic Granulation Platelet Estimate Large Platelets Poikilocytosis (manual Basophilic Stippling Anisocytosis (manual) Ovalocytes [place] Cells PT 14.6 H INR 1.3 H APTT 42.8 H pCO2 pO2 HCO3 ABG pH ABG Total CO2 ABG O2 Saturation ABG O2 Content ABG Base Excess ABG Hemoglobin ABG Carboxyhemoglobin POC ABG HHb (Measured) ABG Methemoglobin ABG O2 Capacity Marcell Test VBG pH VBG pCO2 VBG HCO3 VBG Total CO2 VBG O2 Sat (Calc) VBG Base Excess VBG Potassium A-a O2 Difference Hgb O2 Saturation Glucose Lactate Vent Mode FiO2 Blood Gas Comments Crit Value Called To Crit Value Called By Crit Value Read Back Blood Gas Notified Time Sodium Potassium Chloride Carbon Dioxide Anion Gap BUN Creatinine Est GFR ( Amer) Est GFR (Non-Af Amer) POC Glucose (mg/dL) Random Glucose Lactic Acid 7.6 H* Calcium Phosphorus 4.7 H Magnesium 1.9 Total Bilirubin AST ALT Alkaline Phosphatase Total Creatine Kinase Troponin I Total Protein Albumin Globulin Albumin/Globulin Ratio Venous Blood Potassium 03/10/17 03/10/17 03/10/17 14:07 14:56 16:02 WBC RBC Hgb Hct MCV MCH MCHC RDW Plt Count MPV Neut % (Auto) Lymph % (Auto) Placer % (Auto) Eos % (Auto) Baso % (Auto) Neut # Lymph # Placer # Eos # Baso # Neutrophils % (Manual) Band Neutrophils % Lymphocytes % (Manual) Monocytes % (Manual) Metamyelocytes % Myelocytes % Toxic Granulation Platelet Estimate Large Platelets Poikilocytosis (manual Basophilic Stippling Anisocytosis (manual) Ovalocytes [place] Cells PT INR APTT pCO2 pO2 HCO3 ABG pH ABG Total CO2 ABG O2 Saturation ABG O2 Content ABG Base Excess ABG Hemoglobin ABG Carboxyhemoglobin POC ABG HHb (Measured) ABG Methemoglobin ABG O2 Capacity Marcell Test VBG pH VBG pCO2 VBG HCO3 VBG Total CO2 VBG O2 Sat (Calc) VBG Base Excess VBG Potassium A-a O2 Difference Hgb O2 Saturation Glucose Lactate Vent Mode FiO2 Blood Gas Comments Crit Value Called To Crit Value Called By Crit Value Read Back Blood Gas Notified Time Sodium Potassium Chloride Carbon Dioxide Anion Gap BUN Creatinine Est GFR ( Amer) Est GFR (Non-Af Amer) POC Glucose (mg/dL) 57 L 72 Random Glucose Lactic Acid Calcium Phosphorus Magnesium Total Bilirubin AST ALT Alkaline Phosphatase Total Creatine Kinase 1539 H Troponin I Total Protein Albumin Globulin Albumin/Globulin Ratio Venous Blood Potassium 03/10/17 03/10/17 03/10/17 16:02 16:34 17:21 WBC RBC Hgb Hct MCV MCH MCHC RDW Plt Count MPV Neut % (Auto) Lymph % (Auto) Placer % (Auto) Eos % (Auto) Baso % (Auto) Neut # Lymph # Placer # Eos # Baso # Neutrophils % (Manual) Band Neutrophils % Lymphocytes % (Manual) Monocytes % (Manual) Metamyelocytes % Myelocytes % Toxic Granulation Platelet Estimate Large Platelets Poikilocytosis (manual Basophilic Stippling Anisocytosis (manual) Ovalocytes Quan Cells PT INR APTT pCO2 40 69 H pO2 159 H 75 L HCO3 4.8 L* 38.0 H ABG pH 6.88 L* 7.42 ABG Total CO2 8.7 L 46.9 H ABG O2 Saturation 100.5 H 97.4 ABG O2 Content 22.0 16.7 ABG Base Excess -25.8 L 16.9 H ABG Hemoglobin 15.9 12.6 ABG Carboxyhemoglobin 1.9 H 2.1 H POC ABG HHb (Measured) -0.5 L 2.5 ABG Methemoglobin 1.1 1.4 ABG O2 Capacity 21.9 17.1 Marcell Test Yes Yes VBG pH VBG pCO2 VBG HCO3 VBG Total CO2 VBG O2 Sat (Calc) VBG Base Excess VBG Potassium A-a O2 Difference 504.0 552.0 Hgb O2 Saturation 97.4 94.1 L Glucose Lactate Vent Mode Nrm FiO2 100.0 100.0 Blood Gas Comments Crit Value Called To Dr hiram fields Crit Value Called By [id number] Crit Value Read Back Y Y Blood Gas Notified Time [id number] Sodium Potassium Chloride Carbon Dioxide Anion Gap BUN Creatinine Est GFR ( Amer) Est GFR (Non-Af Amer) POC Glucose (mg/dL) Random Glucose Lactic Acid 9.1 H* Calcium Phosphorus Magnesium Total Bilirubin AST ALT Alkaline Phosphatase Total Creatine Kinase Troponin I Total Protein Albumin Globulin Albumin/Globulin Ratio Venous Blood Potassium 03/10/17 03/10/17 03/10/17 17:49 17:49 17:49 WBC 27.1 H D RBC 4.08 L Hgb 11.8 L D Hct 37.9 MCV 92.9 D MCH 28.9 MCHC 31.1 L RDW 15.5 H Plt Count 65 L D MPV 9.5 Neut % (Auto) 87.3 H Lymph % (Auto) 10.6 L [place]acer % (Auto) 1.1 Eos % (Auto) 0.6 Baso % (Auto) 0.4 Neut # 23.7 H Lymph # 2.9 Placer # 0.3 Eos # 0.2 Baso # 0.1 Neutrophils % (Manual) Band Neutrophils % Lymphocytes % (Manual) Monocytes % (Manual) Metamyelocytes % Myelocytes % Toxic Granulation Platelet Estimate Large Platelets Poikilocytosis (manual Basophilic Stippling Anisocytosis (manual) Ovalocytes Quan Cells PT 20.9 H D INR 1.9 H D APTT 94.3 H D pCO2 pO2 HCO3 ABG pH ABG Total CO2 ABG O2 Saturation ABG O2 Content ABG Base Excess ABG Hemoglobin ABG Carboxyhemoglobin POC ABG HHb (Measured) ABG Methemoglobin ABG O2 Capacity Marcell Test VBG pH VBG pCO2 VBG HCO3 VBG Total CO2 VBG O2 Sat (Calc) VBG Base Excess VBG Potassium A-a O2 Difference Hgb O2 Saturation Glucose Lactate Vent Mode FiO2 Blood Gas Comments Crit Value Called To Crit Value Called By Crit Value Read Back Blood Gas Notified Time Sodium 137 Potassium 5.7 H Chloride 92 L Carbon Dioxide 17 L Anion Gap 34 H BUN 58 H Creatinine 4.6 H Est GFR ( Amer) 15 Est GFR (Non-Af Amer) 13 POC Glucose (mg/dL) Random Glucose 241 H Lactic Acid Calcium 9.7 Phosphorus 15.1 H Magnesium 4.3 H Total Bilirubin 1.5 H AST 564 H D ALT 264 H D Alkaline Phosphatase 165 H D Total Creatine Kinase Troponin I 0.2870 H* Total Protein 3.7 L Albumin 1.6 L D Globulin 2.1 L Albumin/Globulin Ratio 0.7 L Venous Blood Potassium
--- NOTE | 2017-03-10 19:20 | CP.PCM.PRO ---
Pronouncement of Note - Clinical Findings Physical Exam: No Response Verbal/Painful Stimuli, Absent Peripheral Pulses{ Carotid & Femoral}, Absent Heart & Breath Sounds, No Pupillary Light Reflex, No Corneal Reflex, Pupils Fixed & Dilated, Absence of Vital Signs - Pronouncement Time Time of Pronouncement of : 18:56 - Notifications Pronouncement Notifications: Family Notified, Atending Notified Cigar Packing Examiner Notified: Yes - Autopsy Autopsy Requested: No - [place] [id number]
--- NOTE | 2017-03-10 19:25 | CP.PCM.DIS ---
Provider - Provider Date of Admission: 03/10/17 10:22 Attending physician: Liliana Lane DO Time Spent in preparation of Discharge (in minutes): 30 Hospital Course - Lab Results Lab Results: Most Recent Lab Values WBC 27.1 K/uL (4.8-10.8) H D 03/10/17 17:49 RBC 4.08 Mil/uL (4.40-5.90) L 03/10/17 17:49 Hgb 11.8 g/dL (12.0-18.0) L D 03/10/17 17:49 Hct 37.9 % (35.0-51.0) 03/10/17 17:49 MCV 92.9 fl (80.0-94.0) D 03/10/17 17:49 MCH 28.9 pg (27.0-31.0) 03/10/17 17:49 MCHC 31.1 g/dL (33.0-37.0) L 03/10/17 17:49 RDW 15.5 % (11.5-14.5) H 03/10/17 17:49 Plt Count 65 K/uL (130-400) L D 03/10/17 17:49 MPV 9.5 fl (7.2-11.7) 03/10/17 17:49 Neut % (Auto) 87.3 % (50.0-75.0) H 03/10/17 17:49 Lymph % (Auto) 10.6 % (20.0-40.0) L 03/10/17 17:49 [place] % (Auto) 1.1 % (0.0-10.0) 03/10/17 17:49 Eos % (Auto) 0.6 % (0.0-4.0) 03/10/17 17:49 Baso % (Auto) 0.4 % (0.0-2.0) 03/10/17 17:49 Neut # 23.7 K/uL (1.8-7.0) H 03/10/17 17:49 Lymph # 2.9 K/uL (1.0-4.3) 03/10/17 17:49 [place] # 0.3 K/uL (0.0-0.8) 03/10/17 17:49 Eos # 0.2 K/uL (0.0-0.7) 03/10/17 17:49 Baso # 0.1 K/uL (0.0-0.2) 03/10/17 17:49 Neutrophils % (Manual) 63 % (42-75) 03/10/17 09:15 Band Neutrophils % 30 % (0-2) H* 03/10/17 09:15 Lymphocytes % (Manual) 3 % (20-50) L 03/10/17 09:15 Monocytes % (Manual) 1 % (0-10) 03/10/17 09:15 Metamyelocytes % 2 % (0-0) H 03/10/17 09:15 Myelocytes % 1 % (0-0) H 03/10/17 09:15 Toxic Granulation 03/10/17 09:15 Platelet Estimate Normal (NORMAL) 03/10/17 09:15 Large Platelets Present 03/10/17 09:15 Poikilocytosis (manual Moderate 03/10/17 09:15 Basophilic Stippling [employer] 03/10/17 09:15 Anisocytosis (manual) Slight 03/10/17 09:15 Ovalocytes Slight 03/10/17 09:15 Quan Cells Moderate 03/10/17 09:15 PT 20.9 Seconds (9.8-13.1) H D 03/10/17 17:49 INR 1.9 (0.9-1.2) H D 03/10/17 17:49 APTT 94.3 Seconds (25.6-37.1) H D 03/10/17 17:49 pCO2 69 mm/Hg (35-45) H 03/10/17 17:21 pO2 75 mm/Hg (80-100) L 03/10/17 17:21 HCO3 38.0 mmol/L (21-28) H 03/10/17 17:21 ABG pH 7.42 (7.35-7.45) 03/10/17 17:21 ABG Total CO2 46.9 mmol/L (22-28) H 03/10/17 17:21 ABG O2 Saturation 97.4 % (95-98) 03/10/17 17:21 ABG O2 Content 16.7 ML/dL (15-23) 03/10/17 17:21 ABG Base Excess 16.9 mmol/L (-2.0-3.0) H 03/10/17 17:21 ABG Hemoglobin 12.6 g/dL (11.7-17.4) 03/10/17 17:21 ABG Carboxyhemoglobin 2.1 % (0.5-1.5) H 03/10/17 17:21 POC ABG HHb (Measured) 2.5 % (0.0-5.0) 03/10/17 17:21 ABG Methemoglobin 1.4 % (0.0-3.0) 03/10/17 17:21 ABG O2 Capacity 17.1 mL/dL (16-24) 03/10/17 17:21 Marcell Test Yes 03/10/17 17:21 VBG pH 7.21 (7.32-7.43) L 03/10/17 09:43 VBG pCO2 46 mmHg (40-60) 03/10/17 09:43 VBG HCO3 15.6 mmol/L 03/10/17 09:43 VBG Total CO2 19.8 mmol/L (22-28) L 03/10/17 09:43 VBG O2 Sat (Calc) 40.2 % (40-65) 03/10/17 09:43 VBG Base Excess -9.4 mmol/L (0.0-2.0) L 03/10/17 09:43 VBG Potassium 4.3 mmol/L (3.6-5.2) 03/10/17 09:43 A-a O2 Difference 552.0 mm/Hg 03/10/17 17:21 Hgb O2 Saturation 94.1 % (95.0-98.0) L 03/10/17 17:21 Sodium 131.0 mmol/L (132-148) L 03/10/17 09:43 Chloride 92.0 mmol/L (98-107) L 03/10/17 09:43 Glucose 104 mg/dL (75-110) 03/10/17 09:43 Lactate 8.9 mmol/L (0.7-2.1) H* 03/10/17 09:43 Vent Mode Nrm 03/10/17 16:34 FiO2 100.0 % 03/10/17 17:21 Blood Gas Comments Lactate 8.9 03/10/17 09:43 Crit Value Called To Dr hiram fields 03/10/17 17:21 Crit Value Called By [id number] 03/10/17 17:21 Crit Value Read Back Y 03/10/17 17:21 Blood Gas Notified Time 1713 03/10/17 17:21 Sodium 137 mmol/l (132-148) 03/10/17 17:49 Potassium 5.7 MMOL/L (3.6-5.0) H 03/10/17 17:49 Chloride 92 mmol/L (98-107) L 03/10/17 17:49 Carbon Dioxide 17 mmol/L (22-30) L 03/10/17 17:49 Anion Gap 34 (10-20) H 03/10/17 17:49 BUN 58 mg/dl (9-20) H 03/10/17 17:49 Creatinine 4.6 mg/dl (0.8-1.5) H 03/10/17 17:49 Est GFR ( Amer) 15 03/10/17 17:49 Est GFR (Non-Af Amer) 13 03/10/17 17:49 POC Glucose (mg/dL) 72 mg/dL (65-110) 03/10/17 14:56 Random Glucose 241 mg/dL (75-110) H 03/10/17 17:49 Lactic Acid 9.1 MMOL/L (0.7-2.1) H* 03/10/17 16:02 Calcium 9.7 mg/dL (8.4-10.2) 03/10/17 17:49 Phosphorus 15.1 mg/dl (2.5-4.5) H 03/10/17 17:49 Magnesium 4.3 MG/DL (1.6-2.3) H 03/10/17 17:49 Total Bilirubin 1.5 mg/dl (0.2-1.3) H 03/10/17 17:49 AST 564 U/L (17-59) H D 03/10/17 17:49 ALT 264 U/L (21-72) H D 03/10/17 17:49 Alkaline Phosphatase 165 U/L (38-126) H D 03/10/17 17:49 Total Creatine Kinase 1539 U/L (55-170) H 03/10/17 16:02 Troponin I 0.2870 ng/mL (0.00-0.120) H* 03/10/17 17:49 Total Protein 3.7 G/DL (6.3-8.2) L 03/10/17 17:49 Albumin 1.6 g/dL (3.5-5.0) L D 18 17:49 Globulin 2.1 gm/dL (2.2-3.9) L 18 17:49 Albumin/Globulin Ratio 0.7 (1.0-2.1) L 03/10/17 17:49 Venous Blood Potassium 4.3 mmol/L (3.6-5.2) 03/10/17 09:43 - Hospital Course Hospital Course: 66 year old male with chronic leg pain seeing Dr. Maylin Armendariz, s/p "leg surgery " unspecified, likely knee replacement, presents with a several day history of fatigue, malaise, "feeling like he had the flu." Patient is uncooperative with history and examination, stating he wished to speak tomorrow because he was feeling tired. In ER, pt was reported to be hypotensive systolic BP in 70s and tachycardic in 140s with temp 100.2, WBC 11K with bands 30, LA 8.9. Patient responded well to fluid bolus through port (for which he had placed presumably for IV abx for infection in the same area [discussed with Dr. Mata who pt was only referred to for a wound culture L knee to be taken]) and was hemodynamically stabilized. Patient to be admitted to ICU for further management and care for sepsis 2/2 osteomyelitis vs. infected port. Discussed with ID Dr. Lee, to consult Dr. Deon Cote for possible debridement as well as General Surgery Dr. Chadd Galloway for removal of portacath. Pt was stabilized in ER and transferred, admit to ICU. Upon discussion with (former?) spouse, patient had been feeling ill for about a week and had very poor PO intake and was generally in bed. Patient sees Dr. Maylin Armendariz who is pain management, however based on conversation, seems she has also been his primary care physician. Attempted to call Dr. Armendariz, however no prisoner classification interviewer physician was able to be reached. In ICU, patient became acutely unresponsive, hypotensive, tachycardic, hypoxic, tachypneic and then apneic, was intubated, levophed initiated, ordered STAT CT head and chest. Family notified. CODE [place] called for PEA, ACLS protocol initiated, ROSC, central line R femoral, Kizzy L arm. Discussed with Son, Laci who is next of kin, patient is not . Family wishes to have patient as FULL CODE and "to do everything to keep him alive." Labs pending, patient in severe acidosis, BE repeat -25 and LA 9.1, evaluate for acute CVA vs acute CA vs acute PE. On exam, patient lower extremities mottled, pupils fixed. Patient coded again twice, discussed with family, everything explained, all questions answered in detail. Code called 1856, no ROSC. Family notified. See physical exam in Pronouncement of Note. ME notified as well. EDRS: [id number]. Severe Sepsis Severe Metabolic Acidosis, Lactic Acidosis 2/2 Osteomyelitis vs. infected portacath? pt presented with hypotension, tachycardia, bands 30, temp 100.2 Vanc and Zosyn renally dosed (Vanc QOD) intiated 03/10/17 general surgery consulted for removal portacath orthopedic surgery consulted for possible debridement/eval for osteo infectious disease, discussed, consult appreciated and followed cultures pending BE -9.4, repeat -25 LA trending up pt initiated on bicarb drip , levophed monitor Rhabdomyolysis CK 1539, on fluids Coffee-ground Emesis one episode in ER H/H stable on Protonix IVP Q12 THELMA No hx of renal failure in past per family/ BUN 61 SCr 4.2 Chronic Pain patient home dose Oxy 30 mg TID. Discharge Plan - Follow Up Plan Condition:
[2017-03-10 20:19] VITALS: BP 111/74; PULSE 114; RESP 36
[2017-03-10] MEDS ORDERED: Piperacillin/Tazobact 3.375 GM in Sodium Chloride 0.9% 100 ML IVPB SCH (21:00)
--- NOTE | 2017-03-11 16:53 | CARD ---
APPROVED REPORT EKG Measurement Heart [id number] <Conclusion> Sinus tachycardia with premature supraventricular complexes Left axis deviation Abnormal ECG
== END 2017-03-10 22:15 | DRG 871 ==
LOC: H.ER 08:34 → H.ERHOLD 10:22 → H.ICU/CCU 12:20
PROVIDERS: ADMIT Student in an Organized Health Care Education/Training Program; ATTEND Student in an Organized Health Care Education/Training Program
PROC: 0BH17EZ Insertion of Endotracheal Airway into Trachea, Via Natural or Artificial Opening (ICD-10-PCS; principal; 2017-03-10)
PROC: 5A1935Z Respiratory Ventilation, Less than 24 Consecutive Hours (ICD-10-PCS; 2017-03-10)
DX: A40.0 Sepsis due to streptococcus, group A (principal); J96.01 Acute respiratory failure with hypoxia; R57.0 Cardiogenic shock; R65.20 Severe sepsis without septic shock; N17.9 Acute kidney failure, unspecified; E87.2 Acidosis; I95.9 Hypotension, unspecified; M62.82 Rhabdomyolysis; M86.9 Osteomyelitis, unspecified; G89.29 Other chronic pain; Z96.652 Presence of left artificial knee joint; M25.562 Pain in left knee; M79.605 Pain in left leg; R00.0 Tachycardia, unspecified; R00.1 Bradycardia, unspecified